=== PATIENT | male | born 1955 | race Hispanic/Latino ===

== ENCOUNTER → 2023-09-22 | Emergency (ER) | payer OTHER ==
[2023-09-22 17:13] LABS: Absolute Lymphocytes (CBC) 1.8 K/uL (0.7-4.9); Hematocrit 39.4 % (39.6-49.0); Lymphocytes % 31.8 % (15.3-44.8); MCV 90.8 fL (80-100); MPV 8.2 fL (7.6-11.3); Platelets 171 thou/uL (152-406); RBC Red Blood Cell Count 4.34 M/uL (4.33-5.43)
--- NOTE | 2023-09-22 17:58 | EDPHYS ---
Physician Documentation [facility] Name: Pardeep Aguilar Jr Age: 68 yrs Sex: Male : 1955 Arrival Date: 09/22/2023 Time: 16:16 Bed 4 Private MD: Gianni Espinoza ED Physician Pollo Trujillo HPI: 09/22 19:12 This 68 yrs old Male presents to ER via Ambulatory with complaints of Right kdr eye edema. 19:12 Patient reportedly was at a local black belt office in [facility] when they were there [facility] for routine eye exam and glasses. The black belt apparently made some studies with tools that there disposal which revealed the central retinal vein occlusion. Patient denies any recent changes in his vision patient denies any current vision problems. The patient simply was there to get his glasses updated. Patient denies any pain or any other issues at this time. Onset: The symptoms/episode began/occurred at an unknown time. Severity of symptoms: At their worst the symptoms were None. Historical: - Allergies: 16:50 No Known Allergies; cm10 - Home Meds: 16:50 None [Active]; cm10 - PMHx: 16:50 None; cm10 - PSHx: 16:50 None; cm10 - Immunization history:: Adult Immunizations up to date. - Social history:: Smoking status: Patient denies any tobacco usage or history of. ROS: 19:12 Constitutional: Negative for fever, chills, and weight loss, Eyes: Negative for injury, kdr pain, redness, and discharge, 19:12 Eyes: Negative for acute changes, blurry vision, discharge, foreign body sensation, icterus, injury or acute deformity, itching, matting, pain, photophobia, redness, sunken appearance, swelling, tearing, vision loss, visual disturbance, Exam: 19:12 Constitutional: This is a well developed, well nourished patient who is awake, alert, kdr and in no acute distress. Head/Face: Normocephalic, atraumatic. Eyes: Pupils equal round and reactive to light, extra-ocular motions intact. Lids and lashes normal. Conjunctiva and sclera are non-icteric and not injected. Cornea within normal limits. Periorbital areas with no swelling, redness, or edema. Neck: Trachea midline, no thyromegaly or masses palpated, and no cervical lymphadenopathy. Supple, full range of motion without nuchal rigidity, or vertebral point tenderness. No Meningismus. Vital Signs: 16:48 BP 135 / 90; Pulse 55; Resp 16; Temp 97.1; Pulse Ox 97% on R/A; Weight 70.31 kg; Height cm10 5 ft. 9 in. ; Pain 0/10; 16:48 Body Mass Index 22.89 (70.31 kg, 175.26 cm) cm10 16:48 Pain Scale: Adult cm10 MDM: 17:57 Patient medically screened. kdr 19:12 Data reviewed: vital signs, nurses notes, lab test result(s). ED course: I discussed kdr the case with Dr. Perez. He suggested a screen for giant cell arteritis. He suggested a CRP and CBC. Those were completed and found to be completely normal. I relayed this information to Dr. Perez asked that the patient be sent to his office on Sunday. He said no further action was required in the ED at this time. This information was relayed to the patient prior to discharge and he understood the instructions and agreed to follow-up.. 09/22 16:49 Order name: CRP; Complete Time: 17:54 kdr 09/22 16:49 Order name: CBC with Diff; Complete Time: 17:54 kdr Administered Medications: No medications were administered Disposition Summary: 09/22/23 17:57 Discharge Ordered Problem: an ongoing problem kdr Symptoms: are unchanged kdr Condition: Stable kdr Diagnosis - Remote diagnosis: Central retinal vein occlusion, right eye, with reported macular kdr edema. Giant cell arteritis (GCA) screen negative Followup: kdr - With: Francisco Perez MD - When: 1 - 2 days - Reason: Further diagnostic work-up, Recheck today's complaints, Continuance of care, Re-evaluation by your physician Discharge Instructions: - Discharge Summary Sheet kdr - Central Retinal Vein Occlusion, Adult kdr Forms: - Medication Reconciliation Form kdr - Thank You Letter kdr - Patient Portal Instructions kdr - Leadership Thank You Letter kdr Signatures: Dispatcher [employer] EDMS Pollo Trujillo MD MD kdr Nataliya Baker RN RN cm10
--- NOTE | 2023-09-22 17:58 | ER ---
Nurse's Notes [facility] Name: Pardeep Aguilar Jr Age: 68 yrs Sex: Male : 1955 Arrival Date: 09/22/2023 Time: 16:16 Bed 4 Private MD: Gianni Espinoza Diagnosis: Remote diagnosis: Central retinal vein occlusion, right eye, with reported macular edema. Giant cell arteritis (GCA) screen negative Presentation: 09/22 16:48 Chief complaint: Patient states: Went to the eye doctor today for routine eye exam and cm10 was sent to the ED for a central retinal vein occlusion in right eye with Macular edema. Pt denies any vision changes at this time. Coronavirus screen: Vaccine status: Patient reports being unvaccinated. Client denies travel out of the [place] in the last 14 days. Ebola Screen: Patient denies travel to an Ebola-affected area in the 21 days before illness onset. No symptoms or risks identified at this time. Initial Sepsis Screen: Does the patient meet any 2 criteria? No. Patient's initial sepsis screen is negative. Does the patient have a suspected source of infection? No. Patient's initial sepsis screen is negative. Risk Assessment: Do you want to hurt yourself or someone else? Patient reports no desire to harm self or others. Onset of symptoms was September 22, 2023. 16:48 Method Of Arrival: Ambulatory cm10 16:48 Acuity: REECE 3 cm10 Historical: - Allergies: 16:50 No Known Allergies; cm10 - Home Meds: 16:50 None [Active]; cm10 - PMHx: 16:50 None; cm10 - PSHx: 16:50 None; cm10 - Immunization history:: Adult Immunizations up to date. - Social history:: Smoking status: Patient denies any tobacco usage or history of. Vital Signs: 16:48 BP 135 / 90; Pulse 55; Resp 16; Temp 97.1; Pulse Ox 97% on R/A; Weight 70.31 kg; Height cm10 5 ft. 9 in. ; Pain 0/10; 16:48 Body Mass Index 22.89 (70.31 kg, 175.26 cm) cm10 16:48 Pain Scale: Adult cm10 ED Course: 16:18 Patient arrived in ED. mr 16:19 Gianni Espinoza MD is Private Physician. mr 16:26 Pollo Trujillo MD is Attending Physician. kdr 16:46 Ludmila Dawson is Primary Nurse. cp4 16:50 Triage completed. cm10 16:50 Arm band placed on Patient placed in an exam room, on a stretcher. cm10 17:02 CBC with Diff Sent. cp4 17:02 CRP Sent. cp4 17:56 Francisco Perez MD is Referral Physician. kdr 18:45 No provider procedures requiring assistance completed. IV discontinued, intact, kc6 bleeding controlled, No redness/swelling at site. Pressure dressing applied. Administered Medications: No medications were administered Medication: 18:45 VIS not applicable for this client. kc6 Outcome: 17:57 Discharge ordered by . kdr 18:45 Discharged to home ambulatory, kc6 18:45 Condition: good 18:45 Discharge instructions given to patient, Instructed on discharge instructions, follow up and referral plans. Demonstrated understanding of instructions, follow-up care, 18:45 Patient left the ED. kc6 Signatures: Pollo Trujillo MD MD kdr Sonam Hearn, Reg Reg Toshia Abernathy, RN RN kc6 Nataliya Baker RN RN cm10 Ludmila Dawson cp4
[2023-09-22 18:56] VITALS: BP 135/90; TEMP 97.1; O2SAT 97
== END ==
LOC: ER 16:16
DX: H34.8110 Central retinal vein occlusion, right eye, with macular edema (principal)
CPT/HCPCS: 36415; 85025; 86140; 99283

== ENCOUNTER 2023-12-02 12:50 | Emergency (ER) | payer OTHER ==
--- NOTE | 2023-12-02 13:27 | EDPHYS ---
Physician Documentation [facility] Name: Pardeep Aguilar Jr Age: 68 yrs Sex: Male : 1955 Arrival Date: 12/02/2023 Time: 12:50 Bed 12 Private MD: ED Physician Arias Villarreal HPI: 12/01 17:08 This 68 yrs old Male presents to ER via Ambulatory with complaints of Insect sb4 Bite. 17:08 the patient presents with a swollen area of the medial aspect of right thigh. sb4 Description: erythematous. Onset: The symptoms/episode began/occurred 4 day(s) ago. Possible cause(s): insect sting. 17:11 Associated signs and symptoms: Pertinent negatives: discharge, drainage, fever. sb4 Modifying factors: the symptoms are alleviated by nothing, the symptoms are aggravated by nothing. The patient has not experienced similar symptoms in the past. The patient has been recently seen at an urgent care, this week, for similar complaints, was given a prescription for antibiotics. 17:12 on doxy and mupirocin, states area is not improving but not getting worse either. sb4 denies pain or itching. Historical: - Allergies: 13:03 No Known Allergies; nj1 - PMHx: 13:03 None; nj1 - Immunization history:: Client reports receiving the 2nd dose of the Covid vaccine. - Infectious Disease History:: Denies. - Social history:: Smoking status: Patient denies any tobacco usage or history of. ROS: 17:11 Constitutional: Negative for fever, chills, and weight loss, sb4 17:11 Skin: Positive for discoloration, erythema, of the medial aspect of right thigh, 17:11 All other systems are negative, Exam: 17:11 Constitutional: This is a well developed, well nourished patient who is awake, alert, sb4 and in no acute distress. Head/Face: Normocephalic, atraumatic. Eyes: Extra-ocular motions intact. Periorbital areas with no swelling, redness, or edema. ENT: Mucous membranes moist. MS/ Extremity: Pulses equal, no cyanosis. Neurovascular intact. Full, normal range of motion. 17:11 Skin: cellulitis, that is minimal, well demarcated, on the medial aspect of right thigh, Vital Signs: 12:59 BP 132 / 84; Pulse 62; Resp 17; Temp 98.1(O); Pulse Ox 100% on R/A; Weight 69.4 kg; nj1 Height 5 ft. 9 in. ; 12:59 Body Mass Index 22.59 (69.40 kg, 175.26 cm) nj1 MDM: 13:21 Patient medically screened. sb4 17:11 Data reviewed: vital signs, nurses notes, and as a result, I will discharge patient. sb4 Counseling: I had a detailed discussion with the patient and/or guardian regarding the historical points, exam findings, and any diagnostic results supporting the discharge/admit diagnosis, to return to the emergency department if symptoms worsen or persist or if there are any questions or concerns that arise at home. Administered Medications: No medications were administered Disposition Summary: 12/02/23 13:27 Discharge Ordered Notes: Location: Home sb4 Problem: new sb4 Symptoms: are unchanged sb4 Condition: Stable sb4 Diagnosis - cellulitis of right upper thigh sb4 Followup: sb4 - With: Private Physician - When: As needed - Reason: Recheck today's complaints, Re-evaluation by your physician Discharge Instructions: - Discharge Summary Sheet sb4 - Insect Bite, Adult, [id number] sb4 - Cellulitis, Adult, [id number] sb4 Forms: - Antibiotic Education sb4 - Patient Portal Instructions sb4 - Leadership Thank You Letter sb4 Prescriptions: - Clindamycin HCl 150 mg Oral Capsule - take 1 capsule ORAL route every 6 hours for 10 days; 40 capsule; Refills: 0, sb4 Product Selection Permitted Signatures: Marilu Andrews PA-C PA-C sb4 Lissa Barragan RN RN nj1
--- NOTE | 2023-12-02 13:27 | ER ---
Nurse's Notes [facility] Name: Pardeep Aguilar Jr Age: 68 yrs Sex: Male : 1955 Arrival Date: 12/02/2023 Time: 12:50 Bed 12 Private MD: Diagnosis: cellulitis of right upper thigh Presentation: 12/01 12:59 Chief complaint: Patient states: "I got bit by something on my right thigh last week". nj1 Seen by PCP Sunday, given rx for cream and abx. It is not getting better. Coronavirus screen: Vaccine status: Patient reports receiving the 2nd dose of the covid vaccine. Ebola Screen: Patient denies travel to an Ebola-affected area in the 21 days before illness onset. Initial Sepsis Screen: Does the patient meet any 2 criteria? No. Patient's initial sepsis screen is negative. Does the patient have a suspected source of infection? No. Patient's initial sepsis screen is negative. Risk Assessment: Do you want to hurt yourself or someone else? Patient reports no desire to harm self or others. Onset of symptoms was November 2023. 12:59 Method Of Arrival: Ambulatory [facility] 12:59 Acuity: REECE 3 nj1 Triage Assessment: 13:30 General: Appears in no apparent distress. Behavior is calm, cooperative, appropriate ll1 for age. 13:32 Bite description: by an unknown animal, animal information: vaccination(s) is not ll1 applicable. 13:55 Bite description: bite sustained to left leg is possible insect bite L upper thigh. ll1 Historical: - Allergies: 13:03 No Known Allergies; nj1 - PMHx: 13:03 None; nj1 - Immunization history:: Client reports receiving the 2nd dose of the Covid vaccine. - Infectious Disease History:: Denies. - Social history:: Smoking status: Patient denies any tobacco usage or history of. Screenin:30 [facility] ED Fall Risk Assessment (Adult) History of falling in the last 3 months, ll1 including since admission No falls in past 3 months (0 pts) Confusion or Disorientation No (0 pts) Intoxicated or Sedated No (0 pts) Impaired Gait No (0 pts) Mobility Assist Device Used No (0 pt) Altered Elimination No (0 pt) Score/Fall Risk Level 0 - 2 = Low Risk Maintained a safe environment, Hourly rounding (assess needs \\T\\ fall precautionary measures) done. Abuse screen: Denies threats or abuse. Nutritional screening: No deficits noted. Tuberculosis screening: No symptoms or risk factors identified. Assessment: 13:30 General: Appears in no apparent distress. Behavior is calm, cooperative, appropriate ll1 for age. Pain: Complains of pain in R upper thigh Quality of pain is described as aching. Derm: Abscess located on L upper thigh Reports pain. Musculoskeletal: Circulation, motion, and sensation intact. Capillary refill < 3 seconds, Reports pain in L upper thigh. 13:32 Derm: Skin is pink, warm \\T\\ dry. ll1 13:56 Derm: Skin is fragile. ll1 Vital Signs: 12:59 BP 132 / 84; Pulse 62; Resp 17; Temp 98.1(O); Pulse Ox 100% on R/A; Weight 69.4 kg; nj1 Height 5 ft. 9 in. ; 12:59 Body Mass Index 22.59 (69.40 kg, 175.26 cm) nj1 ED Course: 12:54 Patient arrived in ED. ra3 13:03 Triage completed. nj1 13:04 Arm band placed on right wrist. nj1 13:21 [facility] Andrews [facility]. sb4 13:21 Arias Villarreal MD is Attending Physician. sb4 13:32 Patient has correct armband on for positive identification. Provided Education on: ll1 finish prescribed antibiotics. 13:32 No provider procedures requiring assistance completed. Patient did not have IV access ll1 during this emergency room visit. Administered Medications: No medications were administered Medication: 13:55 VIS not applicable for this client. ll1 Outcome: 13:27 Discharge ordered by . sb4 13:32 Patient left the ED. ll1 13:32 Discharged to home ambulatory, ll1 13:32 Condition: stable 13:32 Discharge instructions given to patient, Instructed on discharge instructions, follow up and referral plans. medication usage, Demonstrated understanding of instructions, follow-up care, medications, Prescriptions given X 1, Signatures: Malik Vasques RN RN ll1 Marilu Andrews PA-C PA-C sb4 Lissa Barragan RN RN nj1 Mikki Clifford ra3
[2023-12-02 13:42] VITALS: BP 132/84; TEMP 98.1; O2SAT 100
== END 2023-12-02 13:32 | disposition home or self-care (01) ==
LOC: ER 12:50
DX: L03.115 Cellulitis of right lower limb (principal)
CPT/HCPCS: 99283

== ENCOUNTER 2025-03-08 09:17 | Emergency (ER) | payer OTHER ==
--- OUTSIDE RECORDS SUMMARY | 2025-03-08 09:36 | XMS REPORT | Continuity of Care Document ---
Author Name Unknown Address [address] [facility]. [address] [place] [address] [facility][1] Address [address] [facility] [place] [address] Care Team Providers Care Boiler Reliner Name Role Phone No MD, Pcp Primary Care Physician Unavailab DENVER Martines Attending Clinician Unavailable THU BANUELOS Attending Clinician Unavail able Selbst Thu FALCON Attending Clinician [phone] Juany Escalona MA Attending Clinician UnavailCOURTNEY Wilson Attending Clinician Unavailable Theodore Garcia Attending Clinician Unavailab le [id number] Attending Clinician Unavailable ROSAMARIA CHIN Attending Clinician Unavailable JOSE WILLIS Attending Clinician Unavailable CYN NAJERA Attending Clinician Unavailable BRIANA GÓMEZ Attending Clinician Unavailable SHANE LAO Attending Clinician Unavailable ADRIANA NAJERA Attending Clinician Unavailable GREGORY CANO Attending Clinician Unavai lable [id number] Attending Clinician Unavailable KOURTNEY BARGER Attending Clinician Unavailab CYNDI Dewitt Attending Clinician UnavailJORGE Arroyo Attending Clinician Unavail able DIDI ARMIJOitting Clinician Unavailable Payers Payer Name Policy Type Policy Number Effective Date Expirati on Date Source [employer] MEDICARE PPO [id number] 2024 00:00:00 [employer] MEDICARE ADVANTAGE Medicare [id number] 2024 00:00:00 [employer] OPEN CHOICE PPO [id number] [facility] SIGNATURE O 7 [id number] 2022 00:00:00 Problems Condition Name Condition Details Condition Category Status Onset Date Resolution Date Last Treatment Date Treating Clinician Comments Source Otitis media, unspecifie d, right ear Otitis media, unspecifie d, right ear Disease Active -19 00:00: 00 [facility] Amaurosis fugax Amaurosis fugax Disease Active -17 00:00: 00 [facility] Paresthesi a Paresthesi a Disease Active 5-17 00:00: 00 [facility] Cellulitis of right lower limb Cellulitis of right lower limb Disease Active 5-03 00:00: 00 [facility] Central retinal vein occlusion Central retinal vein occlusion Disease Active 5-03 00:00: 00 [facility] Chest pain on breathing Chest pain on breathing Disease Active 5-03 00:00: 00 [facility] Costochond ritis Costochond ritis Disease Active 5-03 00:00: 00 [facility] Cystoid macular edema Cystoid macular edema Disease Active 5-03 00:00: 00 [facility] Tinea pedis Tinea pedis Disease Active 5-03 00:00: 00 [facility] Hypertrigl yceridemia Hypertrigl yceridemia Disease Active -19 00:00: 00 [facility] Macular degenerati on Macular degenerati on Disease Active -19 00:00: 00 [facility] Other localized visual field defect, unspecifie d eye Other localized visual field defect, unspecifie d eye Disease Active -19 00:00: 00 [facility] Screening for thyroid disorder Screening for thyroid disorder Disease Active -19 00:00: 00 [facility] Allergic rhinitis Allergic rhinitis Disease Active 2-10 00:00: 00 [facility] Conjunctiv itis Conjunctiv itis Disease Active 2-10 00:00: 00 [facility] Varicose veins of both lower extremitie s Varicose veins of both lower extremitie s Disease Active 2-10 00:00: 00 [facility] Fatigue Fatigue Disease Active 02-15 00:00: 00 [facility] Paresthesi a of upper limb Paresthesi a of upper limb Disease Active 02-15 00:00: 00 [facility] Increased frequency of urination Increased frequency of urination Disease Active 04-27 00:00: 00 [facility] Pain in right shoulder Pain in right shoulder Disease Active 04-27 00:00: 00 [facility] Allergies, Adverse Reactions, Alerts Allergy Name Allergy Type Status Severity Reaction(s) Onset Date Inactive Date Treating Clinician Comments Source No Known Allergie s DA Active U 8 00:00: 00 [facility] No Known Medicati on Allergie s No Known Medicati on Allergie s Active Christiane Krueger Social History Social Habit Start Date Stop Date Quantity Comments Source Gender identity 2023-10-20 11:40:27 Identifies as male gender (finding) [facility] Sexual orientation [facility] History of Social function 2024-09-11 00:00:00 2024-09-11 00:00:00 [facility] Tobacco use and exposure 2023-12-14 00:00:00 2023-12-14 00:00:00 Smokeless tobacco non-user [facility] Sex 2023-10-10 16:18:29 2023-10-10 16:18:29 Male (finding) [facility] Alcohol intake 2023-09-19 00:00:00 2023-09-19 00:00:00 Current drinker of alcohol (finding) Vonnie Balderas - External Alcohol Comment 2023-04-10 00:00:00 2023-04-10 00:00:00 ocassionally 1-2 glass of wine Vonnie Balderas - External Sex assigned at 1955 00:00:00 1955 00:00:00 [facility] Smoking Status Start Date Stop Date Source Never smoked tobacco Christiane Krueger [facility] Medications Ordered Medication Name Filled Medication Name Start Date Stop Date Current Medication? Ordering Clinician Indication Dosage Frequency Signature (SIG) Comments Components Source Aflibercept (Eylea) intravitrea l injection 2 mg -10 15:05: 00 11-06 15:05 :00 No [id number] 2mg 2 mg, Intravitre al, Once PRN Procedure, Starting on Asya 11/06/24 at 1005, For 1 dose [facility] oxybutynin XL (Ditropan-X L) 10 MG 24 hr tablet 04-17 08:03: 48 Yes 10mg QD Take 10 mg by mouth 1 (one) time each day. [facility] tamsulosin (Flomax) 0.4 MG 24 hr capsule 8-16 08:21: 52 Yes .4mg Take 0.4 mg by mouth every night. TAKE 1 CAPSULE BY MOUTH ONCE DAILY AT BEDTIME [facility] mupirocin (Bactroban) 2 % ointment 5-03 00:00: 00 12-07 04:59 :00 No 1{appli cation} [id number] 3D Apply 1 applicatio n topically in the morning and 1 applicatio n at noon and 1 applicatio n in the evening. [facility] Oxybutynin Chloride 10 MG oral TABLET SR 24 HR 09-19 00:00: 00 Yes 10mg Take 1 tablet (10 mg total) by mouth daily. Vonnie arana Tamsulosin HCl 0.4 MG oral Capsule 09-19 00:00: 00 03-18 04:59 :00 No .4mg Take 1 capsule (0.4 mg total) by mouth every night at bedtime. Vonnie arana Oxybutynin Chloride 10 MG oral TABLET SR 24 HR 2022-07 00:00: 00 Yes 10mg Take 1 tablet (10 mg total) by mouth daily. Vonnie arana Benzonatate 200 MG oral Capsule 2022-07 00:00: 00 06-17 05:59 :00 No [id number] 200mg Q.[id number] 3D Take 1 capsule (200 mg total) by mouth 3 times daily as needed for cough for up to 10 days. Vonnie arana Zoster Vac Recomb Adjuvanted (Shingrix) 50 MCG/0.5 mL Intramuscul ar Recon Suspension 04-10 00:00: 00 04-11 04:59 :00 No [id number] 50ug Inject 0.5 mL (50 mcg total) into the muscle once for 1 dose. Vonnie Balderas - Franka yasmeen Tdap (ADACEL) 5-2-15.5 LF-MCG/0.5 mL Intramuscul ar Suspension 04-10 00:00: 00 04-11 04:59 :00 No [id number] .5mL Inject 0.5 mL into the muscle once for 1 dose Administer one. Vonnie Mariea yasmene Immunizations Ordered Immunization Name Filled Immunization Name Date Status Comments Source Pneumococcal Vaccine, Polysaccharide 2023-04-10 00:00:00 Completed Vonnie Balderas - External Shingles IM (Shingrix) 2023-04-10 00:00:00 Completed Vonnie Balderas - External Tdap- (Boostrix, Adacel) 2023-04-10 00:00:00 Completed Vonnie Balderas - External Pneumococcal Polysaccharide PPV23 2023-04-10 00:00:00 Completed Zoster, Recombinant 2023-04-10 00:00:00 Completed Tdap 2023-04-10 00:00:00 Completed Pneumococcal Polysaccharide PPV23 2023-04-10 00:00:00 Completed Zoster, Recombinant 2023-04-10 00:00:00 Completed Tdap 2023-04-10 00:00:00 Completed Pneumococcal Polysaccharide PPV23 2023-04-10 00:00:00 Completed Zoster, Recombinant 2023-04-10 00:00:00 Completed Tdap 2023-04-10 00:00:00 Completed Pneumococcal Polysaccharide PPV23 2023-04-10 00:00:00 Completed Zoster, Recombinant 2023-04-10 00:00:00 Completed Tdap 2023-04-10 00:00:00 Completed Pneumococcal Conjugate PCV 20 2022-07-27 00:00:00 Completed Pneumococcal Conjugate PCV 20 2022-07-27 00:00:00 Completed Pneumococcal Conjugate PCV 20 2022-07-27 00:00:00 Completed Pneumococcal Conjugate PCV 20 2022-07-27 00:00:00 Completed Tdap 2022-02-20 00:00:00 Completed Tdap 2022-02-20 00:00:00 Completed Tdap 2022-02-20 00:00:00 Completed Tdap 2022-02-20 00:00:00 Completed Pneumococcal Vaccine, Polysaccharide Unknown Completed Vonnie Cloudol d - External Shingles IM (Shingrix) Unknown Completed Vonnie Bauerybold - External Tdap- (Boostrix, Adacel) Unknown Completed Vonnie Bauerybold - External Pneumococcal Vaccine, Polysaccharide Unknown Completed Vonnie Bauerybol d - External Shingles IM (Shingrix) Unknown Completed Vonnie Bauerybold - External Tdap- (Boostrix, Adacel) Unknown Completed Vonnie Bauerybold - External Pneumococcal Vaccine, Polysaccharide Unknown Completed Vonnie Bauerybol d - External Shingles IM (Shingrix) Unknown Completed Vonnie Seybold - External Tdap- (Boostrix, Adacel) Unknown Completed Vonnie Bauerybold - External Pneumococcal Conjugate PCV 20 Unknown [facility] Pneumococcal Polysaccharide PPV23 Unknown Completed [facility] th Zoster, Recombinant Unknown Completed [facility] Tdap Unknown Com[facility] Vital Signs Vital Name Observation Time Observation Value Comments S ource Systolic blood pressure 2023-09-19 21:29:00 118 mm[Hg] Vonnie Bauerybo ld - External Diastolic blood pressure 2023-09-19 21:29:00 60 mm[Hg] Vonnie Bauerybo ld - External Heart rate 2023-09-19 21:29:00 72 /min Brii elise Bauerkimberlykristina - External Body temperature 2023-09-19 21:29:00 36.5 Blanca Vonnie Bauerybold - External Respiratory rate 2023-09-19 21:29:00 18 /min Vonnie Bauerybold - External Body height 2023-09-19 21:29:00 175.3 cm Anne Marie abreu Seybold - External Body weight 2023-09-19 21:29:00 70.035 kg Anne Marie lois Bauerybold - External BMI 2023-09-19 21:29:00 22.80 kg/m2 Anne Marie lois Bauerybold - External Oxygen saturation in Arterial blood by Pulse oximetry 2023-09-19 21:29:00 99 /min Vonnie Cloudo ld - External Systolic blood pressure 2023-06-19 16:41:00 110 mm[Hg] Vonnie Bauerybo ld - External Diastolic blood pressure 2023-06-19 16:41:00 70 mm[Hg] Vonnie Seybo ld - External Heart rate 2023-06-19 16:41:00 65 /min Kelse y Seybold - External Body temperature 2023-06-19 16:41:00 36.83 Blanca Vonnie Seybold - External Respiratory rate 2023-06-19 16:41:00 16 /min Vonnie Seybold - External Body height 2023-06-19 16:41:00 175.3 cm Anne Marie ey Seybold - External Body weight 2023-06-19 16:41:00 69.219 kg Anne Marie ey Seybold - External BMI 2023-06-19 16:41:00 22.54 kg/m2 Anne Marie ey Seybold - External Oxygen saturation in Arterial blood by Pulse oximetry 2023-06-19 16:41:00 98 /min Vonnie Seybo ld - External Systolic blood pressure 2023-06-06 16:45:00 116 mm[Hg] Vonnie Seybo ld - External Diastolic blood pressure 2023-06-06 16:45:00 72 mm[Hg] Vonnie Seybo ld - External Heart rate 2023-06-06 16:45:00 72 /min Kelse y Seybold - External Body temperature 2023-06-06 16:45:00 36.61 Blanca Vonnie Seybold - External Respiratory rate 2023-06-06 16:45:00 16 /min Vonnie Seybold - External Body height 2023-06-06 16:45:00 175.3 cm Anne Marie ey Seybold - External Body weight 2023-06-06 16:45:00 70.308 kg Anne Marie ey Seybold - External BMI 2023-06-06 16:45:00 22.89 kg/m2 Anne Marie ey Seybold - External Systolic blood pressure 2023-04-10 13:07:00 120 mm[Hg] Vonnie Seybo ld - External Diastolic blood pressure 2023-04-10 13:07:00 60 mm[Hg] Vonnie Seybo ld - External Heart rate 2023-04-10 13:07:00 72 /min Kelse y Seybold - External Body temperature 2023-04-10 13:07:00 36.56 Blanca Vonnie Seybold - External Respiratory rate 2023-04-10 13:07:00 16 /min Vonnie Seybold - External Body height 2023-04-10 13:07:00 175.3 cm Anne Marie abreu Seybold - External Body weight 2023-04-10 13:07:00 69.854 kg Anne Marie ey Seybold - External BMI 2023-04-10 13:07:00 22.74 kg/m2 Anne Marie abreu Seybold - External Systolic (mm Hg) 2022-03-31 21:43:00 [facility] Diastolic (mm Hg) 2022-03-31 21:43:00 [facility] 2022-03-31 21:43:00 [facility] Respitory Rate 2022-03-31 21:43:00 [facility] Height 2022-03-31 21:43:00 170.18 cm [facility] Weight 2022-03-31 21:43:00 [facility] BMI Calculated 2022-03-31 21:43:00 [facility] Procedures Procedure Date / Time Performed Performing Clinician Source Fungal Culture Skin/Hair/Nails w/Smear 2024-12-01 00:00:00 [facility] Epic INTRAVITREAL INJECTION, PHARMACOLOGIC AGENT - OD - RIGHT EYE 2024-11-06 15:05:30 Dahr, [facility] OCT, RETINA - OU - BOTH EYES 2024-11-06 14:06:48 Dahr, [facility] INTRAVITREAL INJECTION, PHARMACOLOGIC AGENT - OD - RIGHT EYE 2024-09-11 21:33:01 Dahr, [facility] OCT, RETINA - OU - BOTH EYES 2024-09-11 21:01:26 Dahr, [facility] INTRAVITREAL INJECTION, PHARMACOLOGIC AGENT - OD - RIGHT EYE 2024-07-10 14:34:47 Dahr, [facility] OCT, RETINA - OU - BOTH EYES 2024-07-10 14:02:23 Dahr, [facility] INTRAVITREAL INJECTION, PHARMACOLOGIC AGENT - OD - RIGHT EYE 2024-05-23 14:25:25 Dahr, [facility] OCT, RETINA - OU - BOTH EYES 2024-05-23 13:34:35 Dahr, [facility] INTRAVITREAL INJECTION, PHARMACOLOGIC AGENT - OD - RIGHT EYE 2024-04-17 14:09:53 Dahr, [facility] OCT, RETINA - OD - RIGHT EYE 2024-04-17 13:21:39 Da, [facility] INTRAVITREAL INJECTION, PHARMACOLOGIC AGENT - OD - RIGHT EYE 2024-03-14 14:13:54 Da, [facility] OCT, RETINA - OU - BOTH EYES 2024-03-14 13:35:43 Da, [facility] OCT, RETINA - OU - BOTH EYES 2023-12-14 13:55:02 Da, [facility] LS RAPID FLU ASSAY-LAB TEST 2023-06-06 17:14:00 Gregory Cano Seybold - External QUANTAFLO 2023-04-10 13:14:52 Cyn Najera eybold - External Plan of Care Planned Activity Planned Date Details Comments Source Encounters Start Date/Time End Date/Time Encounter Type Admission Type Attending [facility] Facility Care Department Encounter ID Source 2025-01-08 08:30:00 2025-01-08 08:30:00 Outpatient [facility]ALY [facility] [id number] [facility] 2024-12-29 10:16:32 2024-12-29 10:56:33 Outpatient Elective SELTHU BONNEROUT EOUT [id number] [facility] 2024-12-29 10:20:00 2024-12-29 10:30:00 Office Visit Thu Banuelos [facility] 1..840.114 350.1.13.70 8.2.7.2.686 [id number] [facility]-01 13:14:23 2024-12-01 14:23:49 Outpatient Elective SELTHU BONNER JakeOUT EOUT [id number] [facility] 2024-12-01 00:00:00 2024-12-01 14:20:41 Telephone Juany Escalona Natalie [facility] 1..840.114 350.1.13.70 8.2.7.2.686 [id number] [facility] 2024-12-01 13:10:00 2024-12-01 13:20:00 Consult Thu Banuelos [facility] 1.2.840.114 350.1.13.70 8.2.7.2.686 [id number] Christiane Krueger [facility] 2024-11-06 09:15:00 2024-11-06 10:36:03 Procedure Visit DENVER MCKENZIE [address] 1.2.840.114 350.1.13.58 9.2.7.2.686 [id number] [facility] 2024-11-06 08:45:00 2024-11-06 10:30:57 Outpatient [facility] [id number] [facility] 2024-11-06 09:15:00 2024-11-06 09:15:00 Outpatient MAGALY [facility] [id number] [facility] 2024-09-11 15:00:00 2024-09-11 15:00:00 Outpatient [facility] [id number] [facility] 2024-09-11 14:30:00 2024-09-11 14:30:00 Procedure Visit DENVER MCKENZIE [address] 1.2.840.114 350.1.13.58 9.2.7.2.686 [id number] [facility] 2024-08-28 08:30:00 2024-08-28 08:30:00 Outpatient MAGALY [facility] [id number] [facility] 2024-07-10 08:45:00 2024-07-10 09:58:03 Procedure Visit DENVER MCKENZIE [address] 1.2.840.114 350.1.13.58 9.2.7.2.686 [id number] [facility] 2024-07-10 08:00:00 2024-07-10 08:10:52 Outpatient [facility] [id number] [facility] 2024-05-23 08:45:00 2024-05-23 12:25:31 Procedure Visit DENVER MCKENZIE [address] 1.2.840.114 350.1.13.58 9.2.7.2.686 [id number] [facility] 2024-05-23 08:25:00 2024-05-23 12:25:22 Outpatient [facility] [id number] [facility] 2024-04-18 13:45:00 2024-04-18 13:45:00 Outpatient DENVER MCKENZIE [facility] [id number] [facility] 2024-04-17 08:15:00 2024-04-17 08:15:00 Outpatient [facility] [id number] [facility] 2024-04-17 08:00:00 2024-04-17 08:00:00 Procedure Visit DENVER MCKENZIE [facility] [address] 1.2.840.114 350.1.13.58 9.2.7.2.686 [id number] [facility] 2024-03-26 14:45:00 2024-03-26 14:45:00 Outpatient [facility] [id number] [facility] 2024-[facility]-14 08:30:00 2024-03-14 08:30:00 Procedure Visit DENVER MCKENZIE [address] 1.2.840.114 350.1.13.58 9.2.7.2.686 [id number] [facility] 2024-03-14 08:20:00 2024-03-14 08:20:00 Outpatient [facility] [id number] [facility] 2024-03-04 18:27:00 2024-03-04 20:08:00 Emergency EM Jose Theodore [facility] ER [id number] [facility] 2024-02-20 10:30:00 2024-02-20 10:30:00 Outpatient COURTNEY MAHER [id number] [facility] 2024-02-08 11:00:00 2024-02-08 11:00:00 Outpatient DENVER MCKENZIE [facility] [id number] [facility] 2023-12-21 14:30:00 2023-12-21 14:30:00 Outpatient DENVER MCKENZIE [facility] [id number] [facility] 2023-12-14 08:15:00 2023-12-14 11:05:59 Office Visit DENVER MCKENZIE [address] 1.2.840.114 350.1.13.58 9.2.7.2.686 [id number] [facility] 2023-12-14 08:25:00 2023-12-14 08:41:22 Outpatient [facility] [id number] [facility] 2023-10-26 09:00:00 2023-10-26 09:00:00 Outpatient DADENVER JOHNSON [facility] [id number] [facility] 2023-09-19 16:15:00 2023-09-19 16:15:00 Outpatient JAIRO FOSTER [id number] [facility] 2023-09-19 15:45:00 2023-09-19 15:45:00 Outpatient COURTNEY MAHER [id number] [facility] 2023-09-11 10:00:00 2023-09-11 10:00:00 Outpatient ROSAMARIA CHIN [id number] [facility] 2023-08-28 11:15:00 2023-08-28 11:15:00 Outpatient JOSE WILLIS [id number] [facility] 2023-08-06 00:00:00 2023-08-06 00:00:00 Outpatient CYN NAJERA [id number] [facility]nie [facility] 2023-08-05 00:00:00 2023-08-05 00:00:00 Outpatient BRIANA GÓMEZ [id number] [facility] 2023-07-11 15:00:00 2023-07-11 15:00:00 Outpatient SHANE LAO [id number] [facility] 2023-07-09 00:00:00 2023-07-09 00:00:00 Outpatient CYN NAJERA [id number] [facility] 2023-07-02 13:40:00 2023-07-02 13:40:00 Outpatient VU, ADRIANA VONNIE FOSTER [id number] [facility] 2023-06-22 09:20:00 2023-06-22 09:20:00 Outpatient VU, ADRIANA VONNIE FOSTER [id number] [facility]nie [facility] 2023-06-19 10:30:00 2023-06-19 10:30:00 Outpatient HO, JOSE VONNIE FOSTER [id number] [facility] 2023-06-06 10:45:00 2023-06-06 10:45:00 Outpatient SUSARGREGORY BRODERICK VONNIE FOSTER [id number] [facility] 2023-06-05 10:30:00 2023-06-05 10:30:00 Outpatient VU, ADRIANA VONNIE FOSTER [id number] [facility] 2023-05-23 14:20:00 2023-05-23 14:20:00 Outpatient COURTNEY MAHER VONNIE FOSTER [id number] [facility] 2023-05-03 10:30:00 2023-05-03 10:30:00 Outpatient TASHIASHANE BROOKS VONNIE FOSTER [id number] [facility] 2023-04-10 09:15:00 2023-04-10 09:15:00 Outpatient LABSofía FOSTER [id number] [facility] 2023-04-10 08:00:00 2023-04-10 08:00:00 Outpatient DANIA, CYN FOSTER [id number] [facility] 2023-04-10 00:00:00 2023-04-10 00:00:00 Out[id number] [facility] 2023-03-13 08:30:00 2023-03-13 08:30:00 Outpatient CYNDI BECKETT [id number] [facility] 2023-01-24 09:00:00 2023-01-24 09:00:00 Outpatient JORGE LEE [id number] [facility] 2023-01-23 08:00:00 2023-01-23 08:00:00 Outpatient JORGE LEE [id number] [facility]nie [facility] 2022-05-30 16:32:48 2022-06-01 04:59:59 Outside Medical Records nullFlavo r [facility] [id number] Christiane Krueger 2022-05-18 18:45:00 2022-05-18 18:45:00 Ambulatory Pre-Reg nullFlavo r [facility] [id number] 2022-04-28 16:30:00 2022-04-28 16:30:00 Ambulatory Pre-Reg nullFlavo r [facility] [id number] [facility] 2022-03-31 21:15:00 2022-04-01 04:59:59 Outpatient nullFlavo r [facility] [id number] Christiane Corderoann 2022-03-31 21:15:00 2022-03-31 21:15:00 Ambulatory Pre-Reg nullFlavo r [facility] [id number] Christiane Krueger Results Test Description Test Time Test Comments Results Result Comments Source Intravitreal Injection, Pharmacologic Agent - OD - Right Eye 15:05:30 Time Out11/06/2024. 9:49 AM. Confirmed correct patient, procedure, site, and patient consented. AnesthesiaSubconjunctival anesthesia was used. Anesthetic medications included Lidocaine 4%, Proparacaine 0.5%. ProcedurePreparation included 5% betadine to ocular surface, eyelid speculum. A 30g x 1/2 needle was used. Injection:2 mg Aflibercept 2 MG/0.05ML ?Route: Intravitreal, Site: Right Eye ?[facility]: 65511-993-43, Lot: [id number], Expiration date: 04/29/2025 Post-opPost injection exam found visual acuity of at least counting fingers, no retinal detachment, perfused optic nerve. The patient tolerated the procedure well. There were no complications. The patient received written and verbal post procedure care education. Post injection medications included gentamicin. [facility] Vonnie Balderas - [id number] 15:18:00* Test Item Value Reference Range Interpretation Comme nts Sed Rate (test code = Sed Rate) 6 [id number] 15:18:00* Test Item Value Reference Range Interpretation Comme nts C-REACTIVE PROTEIN (test cod e = C-REACTIVE PROTEIN) 0.8 [facility] Notes Upcoming Encounters Date/Time Note Provider Source 2024-12-29 10:53:16 Thu Ed Banuelos, [facility] - 12/29/2024 10:20 AM CDT CHIEF COMPLAINT: NAIL BIOPSY, LEFT 3RD DIGIT [facility] HISTORY OF PRESENT ILLNESS: Patient requesting evaluation of the lower extremity to help reduce chances of complications in the lower extremity due to multiple high risk comorbidities Patient states nails are painful, thick, and elongated. Patient requesting nail biopsy to help determine the cause for the irregular nail Patient denies pain, infection, injury, open wounds OBJECTIVE: PHYSICAL EXAM OF THE LOWER EXTREMITY VASCULAR: (-) edema bilateral lower extremity (-) ecchymosis (-) erythema 2/4 Dorsal pedis pulse, bilateral 2/4 Posterior tibial pulse, bilateral (+) normal Capillary Refill time (+) varicosities, (-) pedal hair growth NEUROLOGICAL: (-) sensation with 5.07 [place] Fritz monofilament examination to the most distal lower extremity (-) tinel's sign (-) clonus present (+) normal response to hot, cold, sharp, blunted and vibratory sensations DERMATOLOGICAL: (+) Nails are thick, yellow, elongated. Debrided without complications (-) open wounds (-) signs of infection (-) ischemic tissue (-) macerations (-) abscess (+) normal temperature when compared to contralateral limb (+) normal color, tugor, and elasticity MUSCULOSKELETAL: (-) pain on palpation, BILATERAL lower extremity (+) Semi-rigid hammertoe deformities, BILATERAL (-) other gross osseous abnormalities 5/5 muscle strength to extrinsic pedal muscle groups (-) evidence of compartment syndrome (-) evidence of deep vein thrombosis ASSESSMENT: Paronychia, nails 1-10 Onychomycosis, bilateral feet PLAN: - Extensive office visit discussing possible pedal complications associated with high risk co-morbidities - Nails - debrided without complications - NAIL BIOPSY - OBTAINED 12/01/2024 from LEFT 3RD DIGIT, with sharp instruments, no open wounds thus no bandage necessary. Biopsy necessary to help determine the underlying pathogen for the thick, yellow, irregular nail shape. - Medication - moisturize feet daily to help prevent ulcerations and xerosis - Vascular - no further intervention indicated palpable pedal pulses, no open wounds, no ischemic tissue. - Edema - compression stockings advised - Shoes - patient educated to obtain appropriate shoes with custom inserts - Return 4 weeks for nail biopsy results Patient advised to report to my clinic or the emergency room immediately with any questions or concerns. Patient Instructions: Discussion: A detailed discussion was provided to the patient with specific reference to etiology, pathology, alternate treatment options, and prognosis. All risks and complications (including side effects) with each treatment/medication alternative were outlined in detail including but not limited to: Pain, swelling, numbness,loss of function, loss of limb, bleeding, hematoma, scarring, failure to relieve condition, surgery, additional/revisional surgery, reflex sympathetic dystrophy, complex regional pain syndrome, reoccurrence of deformity, joint stiffness, flail toe, bone and/or soft tissue infection, blood clots, pulmonary embolism, possible ,delayed or non-healing. X-rays, graphs and drawings were all used to assist with patient comprehension when appropriate. All patients questions were answered and stated they fully understood. No guarantee as to results or outcome of treatment was made. I have discussed with the patient or legally responsible person prior to obtaining consent: the risks, potential benefits and drawbacks, significant alternatives, potential for problems related to recuperation, likelihood of success, and possible results of non-treatment, and the patient or the legally responsible person has agreed to proceed. [facility] Due Date Last Done Comments CT Colonography 1957 Colonoscopy 1957 Colorectal Cancer Screening 1957 FIT-DNA 1957 FIT 1957 FOBT 1957 Medicare Annual Wellness (AWV) 1957 Sigmoidoscopy 1957 Zoster Vaccines (2 of 2) 06/05/2023 04/10/2023 Influenza Vaccine (Season Ended) 2025 Lipid Panel 11/28/2029 11/28/2024 Respiratory Syncytial Virus (RSV) Adult Series (1 - 1-dose 75+ series) 2032 DTaP/Tdap/Td Vaccines (3 - T d or Tdap) 04/10/2033 04/10/2023, 02/20/2022 Pneumococcal Vaccine: 50+ Years Completed 04/10/2023, 07/27/2022 HIB Vaccines Aged Out No longer eligi ble based on patient's age to complete this topic HPV Vaccines Aged Out No longer eligi ble based on patient's age to complete this topic Hepatitis A Vaccines Aged Out No long er eligible based on patient's age to complete this topic Hepatitis B Vaccines Aged Out No long er eligible based on patient's age to complete this topic IPV Vaccines Aged Out No longer eligi ble based on patient's age to complete this topic Meningococcal Vaccine Aged Out No tian haydee eligible based on patient's age to complete this topic Rotavirus Vaccines Aged Out No longer eligible based on patient's age to complete this topic [id number] 10:53:16 Diagnosis Abnormal foot finding - Prim angel [facility] [id number] 10:53:16* Thu Banuelos, NIKUNJ - 12/29/2024 10:20 AM CDT CHIEF COMPLAINT: NAIL BIOPSY, LEFT 3RD DIGIT RFC HISTORY OF PRESENT ILLNESS: Patient requesting evaluation of the lower extremity to help reduce chances of complications in the lower extremity due to multiple high risk comorbidities Patient states nails are painful, thick, and elongated. Patient requesting nail biopsy to help determine the cause for the irregular nail Patient denies pain, infection, injury, open wounds OBJECTIVE: PHYSICAL EXAM OF THE LOWER EXTREMITY VASCULAR: (-) edema bilateral lower extremity (-) ecchymosis (-) erythema 2/4 Dorsal pedis pulse, bilateral 2/4 Posterior tibial pulse, bilateral (+) normal Capillary Refill time (+) varicosities, (-) pedal hair growth NEUROLOGICAL: (-) sensation with 5.07 [place] monofilament examination to the most distal lower extremity (-) tinel's sign (-) clonus present (+) normal response to hot, cold, sharp, blunted and vibratory sensations DERMATOLOGICAL: (+) Nails are thick, yellow, elongated. Debrided without complications (-) open wounds (-) signs of infection (-) ischemic tissue (-) macerations (-) abscess (+) normal temperature when compared to contralateral limb (+) normal color, tugor, and elasticity MUSCULOSKELETAL: (-) pain on palpation, BILATERAL lower extremity (+) Semi-rigid hammertoe deformities, BILATERAL (-) other gross osseous abnormalities 5/5 muscle strength to extrinsic pedal muscle groups (-) evidence of compartment syndrome (-) evidence of deep vein thrombosis ASSESSMENT: Paronychia, nails 1-10 Onychomycosis, bilateral feet PLAN: - Extensive office visit discussing possible pedal complications associated with high risk co-morbidities - Nails - debrided without complications - NAIL BIOPSY - OBTAINED 12/01/2024 from LEFT 3RD DIGIT, with sharp instruments, no open wounds thus no bandage necessary. Biopsy necessary to help determine the underlying pathogen for the thick, yellow, irregular nail shape. - Medication - moisturize feet daily to help prevent ulcerations and xerosis - Vascular - no further intervention indicated palpable pedal pulses, no open wounds, no ischemic tissue. - Edema - compression stockings advised - Shoes - patient educated to obtain appropriate shoes with custom inserts - Return 4 weeks for nail biopsy results Patient advised to report to my clinic or the emergency room immediately with any questions or concerns. Patient Instructions: Discussion: A detailed discussion was provided to the patient with specific reference to etiology, pathology, alternate treatment options, and prognosis. All risks and complications (including side effects) with each treatment/medication alternative were outlined in detail including but not limited to: Pain, swelling, numbness,loss of function, loss of limb, bleeding, hematoma, scarring, failure to relieve condition, surgery, additional/revisional surgery, reflex sympathetic dystrophy, complex regional pain syndrome, reoccurrence of deformity, joint stiffness, flail toe, bone and/or soft tissue infection, blood clots, pulmonary embolism, possible ,delayed or non-healing. X-rays, graphs and drawings were all used to assist with patient comprehension when appropriate. All patients questions were answered and stated they fully understood. No guarantee as to results or outcome of treatment was made. I have discussed with the patient or legally responsible person prior to obtaining consent: the risks, potential benefits and drawbacks, significant alternatives, potential for problems related to recuperation, likelihood of success, and possible results of non-treatment, and the patient or the legally responsible person has agreed to proceed. [id number] 10:53:16Upcoming Encounters Health Maintenance Due Date Last Done Comments CT Colonography 1955 Colonoscopy 1957 Colorectal Cancer Screening 1957 FIT-DNA 1957 FIT 1957 FOBT 1957 Medicare Annual Wellness (AWV) 1957 Sigmoidoscopy 1957 Zoster Vaccines (2 of 2) 06/05/2023 04/10/2023 Influenza Vaccine (Season Ended) 2025 Lipid Panel 11/28/2029 11/28/2024 Respiratory Syncytial Virus (RSV) Adult Series (1 - 1-dose 75+ series) 2032 DTaP/Tdap/Td Vaccines (3 - T d or Tdap) 04/10/2033 04/10/2023, 02/20/2022 Pneumococcal Vaccine: 50+ Years Completed 04/10/2023, 07/27/2022 HIB Vaccines Aged Out No longer eligi ble based on patient's age to complete this topic HPV Vaccines Aged Out No longer eligi ble based on patient's age to complete this topic Hepatitis A Vaccines Aged Out No long er eligible based on patient's age to complete this topic Hepatitis B Vaccines Aged Out No long er eligible based on patient's age to complete this topic IPV Vaccines Aged Out No longer eligi ble based on patient's age to complete this topic Meningococcal Vaccine Aged Out No tian haydee eligible based on patient's age to complete this topic Rotavirus Vaccines Aged Out No longer eligible based on patient's age to complete this topic [facility] [id number] 10:53:16 Diagnosis Abnormal foot finding - Prim angel [facility] [id number] 14:21:45* Thu Banuelos DPM - 12/01/2024 1:10 PM CDT CHIEF COMPLAINT: NAIL BIOPSY, LEFT 3RD DIGIT RFC HISTORY OF PRESENT ILLNESS: Patient requesting evaluation of the lower extremity to help reduce chances of complications in the lower extremity due to multiple high risk comorbidities Patient states nails are painful, thick, and elongated. Patient requesting nail biopsy to help determine the cause for the irregular nail Patient denies pain, infection, injury, open wounds OBJECTIVE: PHYSICAL EXAM OF THE LOWER EXTREMITY VASCULAR: (-) edema bilateral lower extremity (-) ecchymosis (-) erythema 2/4 Dorsal pedis pulse, bilateral 2/4 Posterior tibial pulse, bilateral (+) normal Capillary Refill time (+) varicosities, (-) pedal hair growth NEUROLOGICAL: (-) sensation with 5.07 [place] monofilament examination to the most distal lower extremity (-) tinel's sign (-) clonus present (+) normal response to hot, cold, sharp, blunted and vibratory sensations DERMATOLOGICAL: (+) Nails are thick, yellow, elongated. Debrided without complications (-) open wounds (-) signs of infection (-) ischemic tissue (-) macerations (-) abscess (+) normal temperature when compared to contralateral limb (+) normal color, tugor, and elasticity MUSCULOSKELETAL: (-) pain on palpation, BILATERAL lower extremity (+) Semi-rigid hammertoe deformities, BILATERAL (-) other gross osseous abnormalities 5/5 muscle strength to extrinsic pedal muscle groups (-) evidence of compartment syndrome (-) evidence of deep vein thrombosis ASSESSMENT: Paronychia, nails 1-10 Onychomycosis, bilateral feet --- PLAN: - Extensive office visit discussing possible pedal complications associated with high risk co-morbidities - Nails - debrided without complications - NAIL BIOPSY - OBTAINED 12/01/2024 from LEFT 3RD DIGIT, with sharp instruments, no open wounds thus no bandage necessary. Biopsy necessary to help determine the underlying pathogen for the thick, yellow, irregular nail shape. - Medication - moisturize feet daily to help prevent ulcerations and xerosis - Vascular - no further intervention indicated palpable pedal pulses, no open wounds, no ischemic tissue. - Edema - compression stockings advised - Shoes - patient educated to obtain appropriate shoes with custom inserts - Return 4 weeks for nail biopsy results Patient advised to report to my clinic or the emergency room immediately with any questions or concerns. Patient Instructions: Discussion: A detailed discussion was provided to the patient with specific reference to etiology, pathology, alternate treatment options, and prognosis. All risks and complications (including side effects) with each treatment/medication alternative were outlined in detail including but not limited to: Pain, swelling, numbness,loss of function, loss of limb, bleeding, hematoma, scarring, failure to relieve condition, surgery, additional/revisional surgery, reflex sympathetic dystrophy, complex regional pain syndrome, reoccurrence of deformity, joint stiffness, flail toe, bone and/or soft tissue infection, blood clots, pulmonary embolism, possible ,delayed or non-healing. X-rays, graphs and drawings were all used to assist with patient comprehension when appropriate. All patients questions were answered and stated they fully understood. No guarantee as to results or outcome of treatment was made. I have discussed with the patient or legally responsible person prior to obtaining consent: the risks, potential benefits and drawbacks, significant alternatives, potential for problems related to recuperation, likelihood of success, and possible results of non-treatment, and the patient or the legally responsible person has agreed to proceed. [facility] [id number] 14:21:45Upcoming Encounters Scheduled Orders Name Type Priority Associated Diagnoses Orde r Schedule Fungal Culture Skin/Hair/Nails w/Smear Microbiology Routine Onychomycosis Expected: 2024, Expires: 01/01/2025 Health Maintenance Due Date Last Done Comments CT Colonography 1957 Colonoscopy 1957 Colorectal Cancer Screening 1957 FIT-DNA 1957 FIT 1957 FOBT 1957 Medicare Annual Wellness (AWV) 1957 Sigmoidoscopy 1957 Respiratory Syncytial Virus (RSV) Adult Series (1 - Risk 60-74 years 1-dose series) 2017 Zoster Vaccines (2 of 2) 06/05/2023 04/10/2023 Influenza Vaccine (Season Ended) 2025 Lipid Panel 11/28/2029 11/28/2024 DTaP/Tdap/Td Vaccines (3 - T d or Tdap) 04/10/2033 04/10/2023, 02/20/2022 Pneumococcal Vaccine: 50+ Years Completed 04/10/2023, 07/27/2022 HIB Vaccines Aged Out No longer eligi ble based on patient's age to complete this topic HPV Vaccines Aged Out No longer eligi ble based on patient's age to complete this topic Hepatitis A Vaccines Aged Out No long er eligible based on patient's age to complete this topic Hepatitis B Vaccines Aged Out No long er eligible based on patient's age to complete this topic IPV Vaccines Aged Out No longer eligi ble based on patient's age to complete this topic Meningococcal Vaccine Aged Out No tian haydee eligible based on patient's age to complete this topic Rotavirus Vaccines Aged Out No longer eligible based on patient's age to complete this topic [facility] [id number] 14:21:45 Diagnosis Onychomycosis - Primary Dermatophytosis of nail [facility] [id number] 14:20:51Upcoming Encounters Health Maintenance Due Date Last Done Comments CT Colonography 1957 Colonoscopy 1957 Colorectal Cancer Screening 1957 FIT-DNA 1957 FIT 1957 FOBT 1957 Medicare Annual Wellness (AWV) 1957 Sigmoidoscopy 1957 Respiratory Syncytial Virus (RSV) Adult Series (1 - Risk 60-74 years 1-dose series) 2017 Zoster Vaccines (2 of 2) 06/05/2023 04/10/2023 Influenza Vaccine (Season Ended) 2025 Lipid Panel 11/28/2029 11/28/2024 DTaP/Tdap/Td Vaccines (3 - T d or Tdap) 04/10/2033 04/10/2023, 02/20/2022 Pneumococcal Vaccine: 50+ Years Completed 04/10/2023, 07/27/2022 HIB Vaccines Aged Out No longer eligi ble based on patient's age to complete this topic HPV Vaccines Aged Out No longer eligi ble based on patient's age to complete this topic Hepatitis A Vaccines Aged Out No long er eligible based on patient's age to complete this topic Hepatitis B Vaccines Aged Out No long er eligible based on patient's age to complete this topic IPV Vaccines Aged Out No longer eligi ble based on patient's age to complete this topic Meningococcal Vaccine Aged Out No tian haydee eligible based on patient's age to complete this topic Rotavirus Vaccines Aged Out No longer eligible based on patient's age to complete this topic [facility] [id number] 14:20:05 [facility] confirmation: [id number] [id number] 18:45:00 [facility] OR A [facility] OF [facility] EMERGENCY PROVIDER REPORT REPORT#:[id number] REPORT STATUS: Signed DATE:03/04/24 TIME: 184 PATIENT: OPAL PUGH UNIT #: [id number] ROOM/BED: AGE: 68 SEX: M PCP PHYS: Undefined Provider SERVICE AUTHOR: Theodore Garcia MD * ALL edits or amendments must be made on the electronic/computer document * HPI-General Illness General Initial Greet Date/Time 03/04/24 183 Presentation Chief Complaint Diarrhea Free Text HPI Notes Free Text HPI Notes Patient presents to the emergency room complaining of loose bowel movements for the last 2 weeks 4-5 times a day denies any nausea or vomiting denies any fever or chills complains of abdominal discomfort patient had a colonoscopy done about a year or 2 ago which was normal Review of Systems Free Text ROS Notes Free Text ROS Notes CONSTITUTIONAL: No fever, fatigue or weight loss. SKIN: No rash. HENT: No congestion, ear pain, or sore throat. EYES: No recent vision problems or eye pain. ENDOCRINE: No thyroid problems. No polyuria or polydipsia. CARDIOVASCULAR: No chest pain or edema. RESPIRATORY: No cough, shortness of breath, congestion, or wheezing. GASTROINTESTINAL: No abdominal pain, nausea, vomiting, bloody stools or diarrhea. GENITOURINARY: No dysuria. MUSCULOSKELETAL: No joint pain or swelling. LYMPHATIC: No swollen glands. NEUROLOGIC: No seizures. No headache, focal weakness or sensory changes. HEMATOLOGIC: No unusual bruising or bleeding. PSYCHIATRIC: No depression or anxiety. Past Medical History - Adult Stated Complaint VOMITING Allergies Coded Allergies: No Known Allergies (03/04/24) Smoking status for patients 13 years old or older: Never Smoker Physical Exam Vital Signs Vital Signs First Documented: Result Date Time Pulse Ox 99 03/04 1829 B/P 137/74 03/04 1829 B/P Mean 95 03/04 1829 O2 Delivery Room air 03/04 1829 Temp 36.6 03/04 1829 Pulse 65 03/04 1829 Resp 16 03/04 1829 Last Documented: Result Date Time Pulse Ox 99 03/04 1829 B/P 137/74 03/04 1829 B/P Mean 95 03/04 1829 O2 Delivery Room air 03/04 1829 Temp 36.6 03/04 1829 Pulse 65 03/04 1829 Resp 16 03/04 1829 Review of Vital Signs Reviewed, Vital signs normal Free Text PE Notes Free Text PE Notes GENERAL: No acute distress, non-toxic appearance. HEAD: Normal with no signs of head trauma. EYES: PERRLA, EOMI, conjunctiva normal, no discharge. EARS: Hearing grossly intact. NOSE: Normal. THROAT: Oropharynx is normal. Moist mucous membranes NECK: Normal range of motion, no tenderness, supple, no lymphadenopathy, No adenopathy, no JVD. CHEST: Clear breath sounds bilaterally. No wheezes, rales, or rhonchi. CARDIAC: Regular rate and rhythm. S1 and S2, without murmurs, gallops, or rubs. VASCULAR: No Edema. Peripheral pulses normal and equal in all extremities. ABDOMEN: Normal and soft with no tenderness, no masses or pulsatile masses. GASTROINTESTINAL: Bowel sounds normal GENITOURINARY: Deferred LYMPATHTIC: No lymphadenopathy noted. MUSCULOSKELETAL: No joint pain or swelling. NEUROLOGICAL: Alert and oriented x 3. No focal sensory or strength deficits. Speech normal. Follows commands appropriately. PSYCHIATRIC: Normal Affect, judgement and mood. SKIN: Normal appearance with no rashes or lesions. Interpretation Diagnostics Lab Results Interpretation Results Laboratory Tests 03/04/241919: [Embedded Image Not Available] Laboratory Tests: 03/04 1920 Chemistry Sodium (133 - 145 MMOL/L) 140 Potassium (3.6 - 5.2 MMOL/L) 4.0 Chloride (100 - 108 MMOL/L) 103 Carbon Dioxide (22 - 32 MMOL/L) 29 BUN (6 - 20 MG/DL) 19 Creatinine (0.60 - 1.00 MG/DL) 1.16 H Estimated GFR (MDRD) (49 - 113) 69 Glucose (65 - 99 MG/DL) 94 Calcium (8.7 - 10.5 MG/DL) 8.8 Total Bilirubin (0.0 - 1.0 MG/DL) 0.5 AST (15 - 37 Units/L) 26 ALT (30 - 65 Units/L) 40 Alkaline Phosphatase (50 - 136 Units/L) 80 Total Protein (6.4 - 8.2 G/DL) 7.6 Albumin (3.4 - 5.0 G/DL) 3.6 Globulin (1.5 - 3.8 G/DL) 4.0 H Albumin/Globulin Ratio (1.1 - 2.2) 0.9 L Lipase (16 - 77 U/L) 35 Hematology WBC (4.80 - 10.80 x10 3/uL) 6.65 RBC (4.7 - 6.1 x10 6/uL) 4.71 Hgb (14.0 - 17.0 G/DL) 14.7 Hct (42 - 52 %) 44.0 MCV (80 - 94 FL) 93.4 MCH (27 - 31 PG) 31.2 H MCHC (33 - 37 G/DL) 33.4 RDW Coeff of Greg (11.5 - 14.5 %) 13.2 Plt Count (150 - 450 x10 3/uL) 169 MPV (7.4 - 10.4 FL) 10.1 Neut % (Auto) (42 - 86 %) 55.2 Lymph % (Auto) (24 - 44 %) 34.9 [place] % (Auto) (0.0 - 4.0 %) 7.1 H Eos % (Auto) (0.0 - 2.7 %) 2.6 Baso % (Auto) (0.0 - 0.5 %) 0.2 Eos # (Auto) (0.0 - 0.5 x10 3/uL) 0.17 Baso # (Auto) (0.0 - 0.2 x10 3/uL) 0.01 Absolute Neuts (auto) (1.8 - 7.7 x10 3/uL) 3.68 Absolute Lymphs (auto) (1.0 - 4.8 x10 3/uL) 2.32 Absolute Monos (auto) (0.0 - 0.8 x10 3/uL) 0.47 Urines Ur Spec Description Clean Catch Urine Color (YELLOW) YELLOW Urine Appearance (CLEAR) CLEAR Urine pH (5.5 - 7.0) 5.0 L Ur Specific [place] (1.001 - 1.035) 1.020 Urine Protein (NEGATIVE mg/dL) NEGATIVE Urine Glucose (UA) (NEGATIVE mg/dL) NEGATIVE Urine Ketones (NEGATIVE mg/dL) NEGATIVE Urine Blood (NEGATIVE) NEGATIVE Urine Nitrite (NEGATIVE) NEGATIVE Urine Bilirubin (NEGATIVE) NEGATIVE Urine Urobilinogen (NORMAL mg/dL) NORMAL Ur Leukocyte Esterase (NEGATIVE) NEGATIVE Urine WBC (<10 #/hpf) < 10 Ur Squamous Epith Cells (<100 #/lpf) 0 - 20 Urine Culture Screen Criteria not met Urine Comment VOLUME 10-12 ML Recent Impressions: RADIOLOGY - XR ABDOMEN 2V 03/04 1900 Report Impression - Status: SIGNED Entered: 03/04/2024 193 IMPRESSION: No bowel obstruction Electronically signed by: Alonso Pemberton MD 03/04/2024 07:33 PM CDT RP Impression By: - Alonso Pemberton MD Patient Discharge Departure Vital Signs/Condition Vital Signs First Documented: Result Date Time Pulse Ox 99 08/ 1829 B/P 137/74 08/06 1829 B/P Mean 95 08/06 1829 O2 Delivery Room air 08/ 1829 Temp 36.6 08/06 1829 Pulse 65 08/06 1829 Resp 16 08/06 1829 Last Documented: Result Date Time Pulse Ox 99 08/06 1829 B/P 137/74 08/06 1829 B/P Mean 95 08/06 1829 O2 Delivery Room air 08/ 1829 Temp 36.6 08/06 1829 Pulse 65 08/06 1829 Resp 16 08/06 1829 All vital signs available at the time of this entry have been reviewed. Condition Stable Clinical Impression Clinical Impression Primary Impression: Gastroenteritis Time of Impression 1957 Disposition Decision Discharge )( Discharged to Home Yes )( Time 1955 )( Date 03/04/24 Discharge/Care Plan Counseled Regarding Diagnosis, Lab results, Imaging studies, Prescriptions, Need for follow-up Rx Drug Database Reviewed Yes (Auto) Prescriptions Current Visit Scripts SULFAMETHOXAZOLE/TMP (BACTRIM DS 800/160 MG) 1 TAB PO Q12H SULFAMETHOXAZOLE/TMP (BACTRIM DS 800/160 MG) 1 TAB PO Q12H #14 TABS UNTIL FINISHED BISMUTH SUBSALICYLATE (KAOPECTATE 262 MG/15 ML) 30 ML PO Q4H PRN PRN diarrhea BISMUTH SUBSALICYLATE (KAOPECTATE 262 MG/15 ML) 30 ML PO Q4H PRN PRN diarrhea #300 ML Patient Instructions ED Diarrhea, Unknown Cause Referrals Provider Referral: Aquiles Orourke MD Follow-Up: As Needed Address: [facility]. [address] [address] Discharge Note I have spoken with the patient and/or caregivers. I have explained the patient's condition, diagnoses and treatment plan based on the information available to me at this time. I have answered the patient's and/or caregiver's questions and addressed any concerns. The patient and/or caregivers have as good an understanding of the patient's diagnosis, condition and treatment plan as can be expected at this point. The vital signs have been stable. The patient's condition is stable and appropriate for discharge from the emergency department. The patient will pursue further outpatient evaluation with the primary care physician or other designated or consulting physician as outlined in the discharge instructions. The patient and/or caregivers are agreeable to this plan of care and follow-up instructions have been explained in detail. The patient and/or caregivers have received these instructions in written format and have expressed an understanding of the discharge instructions. The patient and/or caregivers are aware that any significant change in condition or worsening of symptoms should prompt an immediate return to this or the closest emergency department or a call to 911. at 1946 RPT #:[id number] END OF [id number] 15:33:32 Chief Complaint Patient presents with [facility] Autumn Ash COUNT INCLUDES THE [facility] [place] WORK[employer] VonnieAndrey [id number] 11:55:04 Patient HOA was faxed, received confirmation and sent to scanning. Tania Talavera CMA I [facility] [id number] 09:39:01 Patient tolerated vaccine well. Tania Talavera CMA I [facility]2023-09-12 09:23:25 Reviewed, in clinic. Will continue to monitor. [facility]2023-09-12 07:56:55 Chief Complaint Patient presents with • Physical 67 yr old male Tania Talavera CMA I [facility]
[2025-03-08] MEDS ORDERED: KETOROLAC 30 MG/ML INJ ONE (10:05)
[2025-03-08] MEDS ORDERED: NA CHLORIDE 0.9% 1,000 ML ONE (10:05)
[2025-03-08 10:11] LABS: Absolute Lymphocytes (CBC) 1.8 K/uL (0.7-4.9); Hematocrit 43.2 % (39.6-49.0); Hemoglobin 15.0 g/dL (13.6-17.9); MCH 31.4 pg (27.0-35.0); MCHC 34.7 g/dL (32.0-36.0); MCV 90.6 fL (80-100); MPV 8.4 fL (7.6-11.3); Nucleated RBC Absolute Count 0.0 (0-0); Nucleated Red Blood Cells % 0.0 % (0-0); RBC Red Blood Cell Count 4.77 M/uL (4.33-5.43); White Blood Count 5.50 thou/uL (4.3-10.9)
[2025-03-08 10:46] LABS: Anion Gap 8.9 mEq/L (5.0-15.0); BUN Blood Urea Nitrogen 18.0 mg/dL (7-18); Glucose Level 124.0 mg/dL (74-106); Troponin High Sensitivity 6.5 pg/mL (<58.9)
[2025-03-08 10:56] LABS: Potassium 3.9 mEq/L (3.5-5.1)
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
[2025-03-08 12:23] VITALS: BP 143/90; TEMP 98.6; O2SAT 97
== END 2025-03-08 12:18 | disposition home or self-care (01) ==
LOC: ER 09:17
DX: M94.0 Chondrocostal junction syndrome [Tietze] (principal); V47.5XXA Car driver injured in collision with fixed or stationary object in traffic accident, initial encounter
CPT/HCPCS: 96361; 93005; 85025; 80048; 36415; 84484; 71046; 96374; 99284; J7030